=== PATIENT | male | born 1980 | race Caucasian/White ===

== ENCOUNTER 2017-03-24 11:12 | Emergency (ER) | payer OTHER ==
[2017-03-24] MEDS ORDERED: NACL 0.9% 500 ML 500 ML IV ONE (11:49)
[2017-03-24] MEDS ORDERED: TYLENOL PO ONE (12:05)
[2017-03-24 12:16] LABS: Hematocrit 35.2 % (35.5-45.6); Hemoglobin 11.9 gm/dl (11.8-15.2); Mean Corpuscular HGB Conc 34 % (32-34); Mean Corpuscular Hemoglobin 27 pg (28-32); Mean Corpuscular Volume 81 fl (84-94); Red Blood Count 4.35 M/mm3 (3.65-5.03); Red Cell Distribution Width 15.9 % (13.2-15.2); White Blood Count 5.8 K/mm3 (4.5-11.0)
--- NOTE | 2017-03-24 12:20 | Emergency Department Report ---
HPI - General Chief Complaint: Dyspnea/Respdistress Time Seen by Provider: 03/24/17 12:05 - HPI HPI: Room 6 The patient is a 36-year-old male presenting with a chief complaint of shortness of breath. Patient states his symptoms began 5 days ago subjective fever and diaphoresis. Patient also developed diarrhea and a slight headache behind his right ear at that time. The patient states his symptoms persisted until this morning he developed shortness of breath. Patient denies any history of cough but does admit to rhinorrhea. Patient denies nausea/vomiting. Patient denies having sick contacts or any recent antibiotic use Location: [see above] Duration: 5 days Quality: Shortness of breath Severity: Moderate Modifying factors: [see above] Context: [see above] Mode of transportation: [not driving] ED Past Medical Hx - Past Medical History Previous Medical History?: No - Surgical History Past Surgical History?: No - Family History Family history: no significant - Social History Smoking Status: Current Every Day Smoker (1/2 pack per day) Substance Use Type: Alcohol (occasional), Cocaine (none times over one year) - Medications Home Medications: Home Medications Medication Instructions Recorded Confirmed Last Taken Type Ciprofloxacin HCl [Ciprofloxacin 500 mg PO Q12HR #14 tab 03/24/17 Unknown Rx TAB] ED Review of Systems ROS: Stated complaint: SOB/SWEAT AND CHILLS Other details as noted in HPI Comment: All other systems reviewed and negative Constitutional: diaphoresis, fever (subjective) Eyes: denies: eye pain, eye discharge, vision change ENT: other (rhinorrhea) Respiratory: shortness of breath. denies: cough Cardiovascular: denies: chest pain, palpitations Endocrine: no symptoms reported Gastrointestinal: diarrhea. denies: abdominal pain, nausea, vomiting Genitourinary: denies: urgency, dysuria Musculoskeletal: denies: back pain, joint swelling, arthralgia Skin: denies: rash, lesions Neurological: headache Psychiatric: denies: anxiety, depression Hematological/Lymphatic: denies: easy bleeding, easy bruising Physical Exam - Physical Exam Vital Signs: Vital Signs 03/24/17 11:46 Temperature 100.9 F H Pulse Rate 138 H Respiratory 18 Rate Blood Pressure 123/68 O2 Sat by Pulse 100 Oximetry Physical Exam: GENERAL: The patient is well-developed well-nourished male sitting in room not appear to be in acute distress. [] HEENT: Normocephalic. Atraumatic. Extraocular motions are intact. Patient has moist mucous membranes. NECK: Supple. No meningitic signs are noted. Trachea midline CHEST/LUNGS: Clear to auscultation. There is no respiratory distress noted. HEART/CARDIOVASCULAR: Regular. There is tachycardia. There is no gallop rub or murmur. ABDOMEN: Abdomen is soft, nontender. Patient has normal bowel sounds. There is no abdominal distention. SKIN: There is no rash. There is no edema. There is diaphoresis. NEURO: The patient is awake, alert, and oriented. The patient is cooperative. The patient has normal speech and gait MUSCULOSKELETAL: There is no evidence of acute injury. ED Course Vital Signs 03/24/17 11:46 Temperature 100.9 F H Pulse Rate 138 H Respiratory 18 Rate Blood Pressure 123/68 O2 Sat by Pulse 100 Oximetry - Consultations Consultation #1: 03/24/17 15:07 Gastroenterology paged 03/24/17 15:[address] Vora. States the patient is able to tolerate by mouth , has defervesced and is not ill-appearing may be discharged home with close GI follow-up. May start the patient empirically on ciprofloxacin but stressed close follow-up ED Medical Decision Making - Lab Data Result diagrams: 03/24/17 12:06 03/24/17 12:06 Laboratory Tests 03/24/17 03/24/17 03/24/17 12:06 12:06 12:06 WBC 5.8 RBC 4.35 Hgb 11.9 Hct 35.2 L MCV 81 L MCH 27 L MCHC 34 RDW 15.9 H Plt Count 55 L Add Manual Diff Complete Total Counted 100 Seg Neuts % (Manual) 76.0 H Band Neutrophils % 5.0 Lymphocytes % (Manual) 11.0 L Reactive Lymphs % (Man) 4.0 Monocytes % (Manual) 4.0 Eosinophils % (Manual) 0 Basophils % (Manual) 0 Metamyelocytes % 0 Myelocytes % 0 Promyelocytes % 0 Blast Cells % 0 Nucleated RBC % Not Reportable Seg Neutrophils # Man 4.4 Band Neutrophils # 0.3 Lymphocytes # (Manual) 0.6 L Abs React Lymphs (Man) 0.2 Monocytes # (Manual) 0.2 Eosinophils # (Manual) 0.0 Basophils # (Manual) 0.0 Metamyelocytes # 0.0 Myelocytes # 0.0 Promyelocytes # 0.0 Blast Cells # 0.0 WBC Morphology Not Reportable Hypersegmented Neuts Not Reportable Hyposegmented Neuts Not Reportable Hypogranular Neuts Not Reportable Smudge Cells Not Reportable Toxic Granulation Not Reportable Toxic Vacuolation Not Reportable Dohle Bodies Not Reportable Pelger-Huet Anomaly Not Reportable Ace Rods Not Reportable Platelet Estimate Appears decreased Clumped Platelets Not Reportable Plt Clumps, EDTA Not Reportable Large Platelets Not Reportable Giant Platelets Not Reportable Platelet Satelliting Not Reportable Plt Morphology Comment Not Reportable RBC Morphology Not Reportable Dimorphic RBCs Not Reportable Polychromasia Not Reportable Hypochromasia Not Reportable Poikilocytosis Not Reportable Anisocytosis 1+ Microcytosis Not Reportable Macrocytosis Not Reportable Spherocytes Not Reportable Pappenheimer Bodies Not Reportable Sickle Cells Not Reportable Target Cells Few Tear Drop Cells Not Reportable Ovalocytes Not Reportable Helmet Cells Not Reportable Cunningham-Ong Bodies Not Reportable Monroe Rings Not Reportable Akash Cells Not Reportable Bite Cells Not Reportable Crenated Cell Not Reportable Elliptocytes Not Reportable Acanthocytes (Spur) Not Reportable Rouleaux Not Reportable Hemoglobin C Crystals Not Reportable Schistocytes Not Reportable Malaria parasites Not Reportable David Bodies Not Reportable Hem Pathologist Commnt No PT 16.1 H INR 1.23 H VBG pH Sodium 129 L Potassium 4.2 Chloride 93.7 L Carbon Dioxide 23 Anion Gap 17 BUN 14 Creatinine 1.0 Estimated GFR > 60 BUN/Creatinine Ratio 14.00 Glucose 98 Lactic Acid Calcium 7.7 L Total Bilirubin 2.30 H AST 126 H ALT 108 H Alkaline Phosphatase 213 H Total Protein 7.0 Albumin 2.6 L Albumin/Globulin Ratio 0.6 03/24/17 03/24/17 12:06 12:06 WBC RBC Hgb Hct MCV MCH MCHC RDW Plt Count Add Manual Diff Total Counted Seg Neuts % (Manual) Band Neutrophils % Lymphocytes % (Manual) Reactive Lymphs % (Man) Monocytes % (Manual) Eosinophils % (Manual) Basophils % (Manual) Metamyelocytes % Myelocytes % Promyelocytes % Blast Cells % Nucleated RBC % Seg Neutrophils # Man Band Neutrophils # Lymphocytes # (Manual) Abs React Lymphs (Man) Monocytes # (Manual) Eosinophils # (Manual) Basophils # (Manual) Metamyelocytes # Myelocytes # Promyelocytes # Blast Cells # WBC Morphology Hypersegmented Neuts Hyposegmented Neuts Hypogranular Neuts Smudge Cells Toxic Granulation Toxic Vacuolation Dohle Bodies Pelger-Huet Anomaly Ace Rods Platelet Estimate Clumped Platelets Plt Clumps, EDTA Large Platelets Giant Platelets Platelet Satelliting Plt Morphology Comment RBC Morphology Dimorphic RBCs Polychromasia Hypochromasia Poikilocytosis Anisocytosis Microcytosis Macrocytosis Spherocytes Pappenheimer Bodies Sickle Cells Target Cells Tear Drop Cells Ovalocytes Helmet Cells Cunningham-Ong Bodies Monroe Rings [place] Cells Bite Cells Crenated Cell Elliptocytes Acanthocytes (Spur) Rouleaux Hemoglobin C Crystals Schistocytes Malaria parasites David Bodies Hem Pathologist Commnt PT INR VBG pH 7.431 H Sodium Potassium Chloride Carbon Dioxide Anion Gap BUN Creatinine Estimated GFR BUN/Creatinine Ratio Glucose Lactic Acid 1.50 Calcium Total Bilirubin AST ALT Alkaline Phosphatase Total Protein Albumin Albumin/Globulin Ratio Influenza negative - EKG Data -: EKG Interpreted by Me EKG shows normal: sinus rhythm Rate: tachycardia (119 bpm) - EKG Data When compared to previous EKG there are: previous EKG unavailable Interpretation: other (no ischemic changes seen) - Radiology Data Radiology results: report reviewed (right upper quadrant ultrasound), image reviewed (chest x-ray, right upper quadrant ultrasound) interpreted by me: Chest x-ray no focal infiltrate, no pneumothorax Right upper quadrant ultrasound (read by radiologist)-no focal liver lesions are seen. There is no intra-or extrahepatic biliary dilatation. There is a small amount of gallbladder sludge. There is no cholelithiasis seen. There is no gallbladder wall thickening or pericholecystic fluid. Visualized pancreas is unremarkable. There is no right hydronephrosis - Differential Diagnosis pneumonia, UTI, enteritis, influenza Critical care attestation.: If time is entered above; I have spent that time in minutes in the direct care of this critically ill patient, excluding procedure time. ED Disposition Clinical Impression: Fever, Diarrhea, Thrombocytopenia, Elevated LFTs Disposition: DC- TO HOME OR SELFCARE Is pt being admited?: No Does the pt Need Aspirin: No Condition: Stable Instructions: Thrombocytopenia (ED), Viral Hepatitis B (ED), Viral Hepatitis C (ED), Viral Hepatitis A (ED) Additional Instructions: Return to the emergency department immediately should you develop worsening symptoms, fever, inability to tolerate food or liquid or any other concerns. Prescriptions: Ciprofloxacin HCl [Ciprofloxacin TAB] 500 mg PO Q12HR #14 tab Referrals: PAMELA VORA MD [Staff Physician] - [facility] (Dr. Vora is a supervising editor trailer. It is very important that you follow-up with him promptly for further evaluation ) Time of Disposition: 15:22
[2017-03-24 12:27] LABS: Platelet Count 55 K/mm3 (140-440)
[2017-03-24 12:30] LABS: INR 1.23 (0.87-1.13)
[2017-03-24 12:34] LABS: Alanine Aminotransferase 108 units/L (7-56); Albumin 2.6 g/dL (3.9-5); Albumin/Globulin Ratio 0.6 %; Alkaline Phosphatase 213 units/L (35-129); Anion Gap 17 mmol/L; Blood Urea Nitrogen 14 mg/dL (9-20); Calcium 7.7 mg/dL (8.4-10.2); Carbon Dioxide 23 mmol/L (22-30); Chloride 93.7 mmol/L (98-107); Glucose 98 mg/dL (75-100); Potassium 4.2 mmol/L (3.6-5.0); Sodium 129 mmol/L (137-145)
--- NOTE | 2017-03-24 13:16 | XRay Report ---
ROUTINE CHEST, TWO VIEWS: HISTORY: Short of breath, fever. The trachea, heart, mediastinal contour, lung saunders and bony thorax are unremarkable. IMPRESSION: Unremarkable chest x-ray.
[2017-03-24 13:24] LABS: Basophils % (Manual) 0 % (0.0-1.8); Blastocytes % (Manual) 0 %; Eosinophils % (Manual) 0 % (0.0-4.3)
[2017-03-24 13:25] LABS: Anisocytosis 1+; Diff Status Complete; Platelet Estimate Appears Decreased; Target Cells Few
--- NOTE | 2017-03-24 14:59 | Ultrasound Report ---
FINAL REPORT EXAM: US ABDOMEN LIMITED HISTORY: diarrhea, elevated LFTs TECHNIQUE: Sonography of the abdomen performed. PRIORS: None. FINDINGS: No focal liver lesions are seen. There is no intra- or extrahepatic biliary dilatation. There is a small amount of gallbladder sludge. There is no cholelithiasis seen. There is no gallbladder wall thickening or pericholecystic fluid. The visualized pancreas is unremarkable. There is no right hydronephrosis. IMPRESSION: Small amount of dependent gallbladder sludge. No cholelithiasis or other significant finding seen.
[2017-03-24 15:14] VITALS: BP 109/73
== END 2017-03-24 15:48 | disposition home or self-care (01) ==
LOC: ED 11:12
DX: R50.9 Fever, unspecified (principal); R19.7 Diarrhea, unspecified; D69.6 Thrombocytopenia, unspecified; R94.5 Abnormal results of liver function studies; F14.10 Cocaine abuse, uncomplicated; F17.200 Nicotine dependence, unspecified, uncomplicated
CPT/HCPCS: 36415; 71020; 76705; 80053; 82140; 82805; 85007; 85025; 85610; 87040; 87086; 87400; 93005; 93010; 96360; 96361; 99285; J7040

== ENCOUNTER 2017-06-21 09:11 | Emergency (ER) | payer OTHER ==
--- NOTE | 2017-06-21 10:30 | Emergency Department Report ---
Minor Respiratory - HPI Chief Complaint: Sore Throat Stated Complaint: FLU LIKE SYMPTOMS Time Seen by Provider: 06/21/17 10:25 ED Review of Systems ROS: Stated complaint: FLU LIKE SYMPTOMS Other details as noted in HPI ED Past Medical Hx - Past Medical History Previous Medical History?: No - Surgical History Past Surgical History?: No - Social History Smoking Status: Former Smoker Substance Use Type: Alcohol, Cocaine, Marijuana - Medications Home Medications: Home Medications Medication Instructions Recorded Confirmed Last Taken Type Ciprofloxacin HCl [Ciprofloxacin 500 mg PO Q12HR #14 tab 03/24/17 Unknown Rx TAB] Minor Respiratory Exam - Exam General: Vital signs noted. No distress. Alert and acting appropriately. Neurologic: Alert and oriented, no deficits. Musculoskeletal: Unremarkable. ED Course Vital Signs 06/21/17 10:11 Temperature 98.0 F Pulse Rate 131 H Respiratory 20 Rate Blood Pressure 148/84 O2 Sat by Pulse 98 Oximetry Critical care attestation.: If time is entered above; I have spent that time in minutes in the direct care of this critically ill patient, excluding procedure time. ED Disposition Condition: Stable
[2017-06-21] MEDS ORDERED: NACL 0.9% 1000 ML 1,000 ML IV ONE (10:45)
[2017-06-21 11:14] LABS: Hematocrit 41.4 % (35.5-45.6); Hemoglobin 14.1 gm/dl (11.8-15.2); Mean Corpuscular HGB Conc 34 % (32-34); Mean Corpuscular Hemoglobin 30 pg (28-32); Mean Corpuscular Volume 87 fl (84-94); Red Blood Count 4.77 M/mm3 (3.65-5.03)
[2017-06-21 11:18] LABS: BUN/Creatinine Ratio 13; Blood Urea Nitrogen 17 mg/dL (9-20); Calcium 7.9 mg/dL (8.4-10.2); Hemolysis Index 4; Platelet Count 43 K/mm3 (140-440)
[2017-06-21 11:21] LABS: Albumin 2.7 g/dL (3.9-5); Bilirubin,Direct 0.9 mg/dL (0-0.2)
--- NOTE | 2017-06-21 11:45 | XRay Report ---
ROUTINE CHEST, TWO VIEWS: HISTORY: Cough, upper respiratory infection. The trachea, heart, mediastinal contour, lung saunders and bony thorax are unremarkable. IMPRESSION: Unremarkable chest x-ray.
[2017-06-21 11:50] LABS: Anisocytosis 1+; Band Neutrophils # (Manual) 0.1 K/mm3; Basophils % (Manual) 0 % (0.0-1.8); Eosinophils % (Manual) 0 % (0.0-4.3); Large Platelets 1+; Ovalocytes Few; Platelet Estimate Appears Decreased; Total Cells Counted 100
--- NOTE | 2017-06-21 12:15 | Emergency Department Report ---
- General Chief Complaint: Sore Throat Stated Complaint: FLU LIKE SYMPTOMS Time Seen by Provider: 06/21/17 10:25 Source: patient, family, old records reviewed Mode of arrival: Ambulatory Limitations: No Limitations - History of Present Illness MD Complaint: sore throat, other (whitley and fatigue) -: Gradual, week(s) (but inc in days worse than ever) Severity: moderate Consistency: intermittent Improves With: nothing Worsens With: nothing Context: other (homosexual male concerned for hiv; tested in december) Associated Symptoms: myalgias, headache, weight loss, other (fatigue, flu like s /s; knots in back of head). denies: fever, chills, diaphoresis, rhinorrhea, nasal congestion, sore throat, stiff neck, cough, chest pain, shortness of breath, abdominal pain, nausea, vomiting, diarrhea, dysuria, rash, confusion, right sweats, epistaxis, hoarseness, ear pain Treatments Prior to Arrival: Acetaminophen, Aspirin - Related Data Previous Rx's Medication Instructions Recorded Last Taken Type Sulfamethoxazole/Trimethoprim 2 each PO Q8H #21 day 06/21/17 Unknown Rx [Bactrim DS TAB] Allergies Allergy/AdvReac Type Severity Reaction Status Date / Time No Known Allergies Allergy Unverified 03/24/17 11:46 ED Review of Systems ROS: Stated complaint: FLU LIKE SYMPTOMS Other details as noted in HPI Comment: All other systems reviewed and negative Constitutional: fever, malaise, weakness ENT: throat pain Endocrine: flushing Neurological: weakness Psychiatric: anxiety ED Past Medical Hx - Past Medical History Previous Medical History?: No - Surgical History Past Surgical History?: No - Family History Family history: no significant - Social History Smoking Status: Former Smoker Substance Use Type: Alcohol, Cocaine, Marijuana - Medications Home Medications: Home Medications Medication Instructions Recorded Confirmed Last Taken Type Sulfamethoxazole/Trimethoprim 2 each PO Q8H #21 day 06/21/17 Unknown Rx [Bactrim DS TAB] ED Physical Exam - General Limitations: No Limitations General appearance: alert, in no apparent distress, anxious - Head Head exam: Present: atraumatic, normocephalic - Eye Eye exam: Present: normal appearance, PERRL, EOMI. Absent: conjunctival injection - ENT ENT exam: Present: mucous membranes moist, TM's normal bilaterally - Neck Neck exam: Present: normal inspection, full ROM, lymphadenopathy (sub occipal ) - Respiratory Respiratory exam: Present: normal lung sounds bilaterally, respiratory distress - Cardiovascular Cardiovascular Exam: Present: regular rate, normal rhythm, tachycardia (on admit ; p fluids dec to 100), normal heart sounds - GI/Abdominal GI/Abdominal exam: Present: soft - Rectal Rectal exam: Present: deferred - exam: Present: normal inspection External exam: Present: normal external exam - Extremities Exam Extremities exam: Present: normal inspection, full ROM - Back Exam Back exam: Present: normal inspection, full ROM. Absent: tenderness, CVA tenderness (R), CVA tenderness (L) - Neurological Exam Neurological exam: Present: alert, oriented X3, CN II-XII intact, normal gait - Psychiatric Psychiatric exam: Present: normal affect, normal mood - Skin Skin exam: Present: warm, dry, intact, normal color. Absent: rash, cyanosis, diaphoretic, erythema, urticaria, vesicles, other (no hand lesions or skin lesions noted ) ED Course Vital Signs 06/21/17 06/21/17 10:11 16:16 Temperature 98.0 F 99.4 F Pulse Rate 131 H 126 H Respiratory 20 18 Rate Blood Pressure 148/84 Blood Pressure 127/83 [Right] O2 Sat by Pulse 98 99 Oximetry - Reevaluation(s) Reevaluation #1: TO ER FOR SECOND TIME W [place] [facility] CO HOMOSEXUAL MALE WHO WAS LAST TESTED FOR HIV IN DECEMBER; THEN NEG HE IS CONCERNED FOR HIV CO WHITLEY, DEC ENERGY, FEELING DEHDYRATION, DIARRHEA, DIZZY 2 SEX PARTNERS IN 6 M; NO HIV KNOWN HX TRANSAMINITIS HX ETOH/COCAIN/THC STOPPED CIG IN MAR MOM /DAD A/W HTN ONLY NO CURRENT MEDS LABS NOTED DISCUSSED WITH DR JAMES. will call Dr Everett for consult. Reevaluation #2: 06/21/17 17:12 Discussed case at length with pt his best friend was called and is here at the beside with him Dr. Everett consulted- she advised bactrim ds prophylactic and follow up. labs ordered per her recommendation call back no verified with pt for labs. will dc home w follow up at [facility] with friend taking po hr 100, rr 20, sat 100 per provider appreciative of care ED Medical Decision Making - Lab Data Result diagrams: 06/21/17 10:48 06/21/17 10:48 - Radiology Data Radiology results: report reviewed, image reviewed - Medical Decision Making see note flu a/b neg strep neg xray neg discussed w Dr James discussed w Dr Everett Pt educated Support at bedside for dc poc provided - Differential Diagnosis ro hiv related infection Critical care attestation.: If time is entered above; I have spent that time in minutes in the direct care of this critically ill patient, excluding procedure time. ED Disposition Clinical Impression: HIV (human immunodeficiency virus infection), Dysuria, Polysubstance abuse Disposition: DC-01 TO HOME OR SELFCARE Is pt being admited?: No Does the pt Need Aspirin: No Condition: Stable Instructions: Human Immunodeficiency Virus Transmission (ED), Human Immunodeficiency Virus Infection (ED) Additional Instructions: follow up with infectious disease within 1 week med as ordered today hydrate well motrin for pain or fever decrease use of drugs and alcohol rest good nutrition have your MD fax consent to us to get your medical records from today. Prescriptions: Sulfamethoxazole/Trimethoprim [Bactrim DS TAB] 2 each PO Q8H #21 day Referrals: PRIMARY CARE, [Primary Care Provider] - 3-5 Days [facility] [Outside] - 3-5 Days Time of Disposition: 17:09
[2017-06-21 13:11] LABS: INR 1.34 (0.87-1.13)
[2017-06-21 13:12] LABS: Partial Thromboplastin Time 44.5 Sec. (24.2-36.6)
[2017-06-21 14:07] LABS: Bacteria,Urine 1+ /HPF (Negative); Bilirubin,Urine NEG (Negative); Blood,Urine MOD (Negative); Color,Urine Amber (Yellow); Mucus,Urine FEW /HPF; Nitrite,Urine NEG (Negative)
[2017-06-21 14:31] LABS: Hepatitis A Antibody IgM Non-Reactive (NonReactive); Hepatitis B Core IgM Non-Reactive (NonReactive); Hepatitis B Surface Antigen Non-Reactive (Negative); Hepatitis C Virus Antibody Non-Reactive (NonReactive)
[2017-06-21 16:17] VITALS: BP 127/83
[2017-06-21] MEDS ORDERED: ZITHROMAX PO ONE (16:39)
[2017-06-21] MEDS ORDERED: XYLOCAINE 1% MPF 5 mL INFILTRATI ONE (16:39)
[2017-06-21] MEDS ORDERED: ROCEPHIN IM ONE (16:39)
[2017-06-21] MEDS ORDERED: BACTRIM DS PO ONE (16:44)
[2017-06-21] MEDS ORDERED: MOTRIN PO ONE (16:45)
[2017-06-25 21:18] LABS: HIV-1 RNA QN PCR 5.1 Log cps/mL (<1.30)
[2017-06-27 20:41] LABS: CD4/CD8 Ratio 0.08 (0.86-5.00)
== END 2017-06-21 17:47 | disposition home or self-care (01) ==
LOC: ED 09:11
DX: R30.0 Dysuria (principal); F19.10 Other psychoactive substance abuse, uncomplicated; Z21 Asymptomatic human immunodeficiency virus [HIV] infection status; F14.10 Cocaine abuse, uncomplicated; F12.10 Cannabis abuse, uncomplicated; Z87.891 Personal history of nicotine dependence
CPT/HCPCS: 36415; 71020; 80048; 80074; 81001; 82024; 85007; 85025; 85610; 85730; 86689; 87086; 87116; 87400; 87430; 87536; 87591; 87806; 96360; 96372; 99284; J0696; J7030

== ENCOUNTER 2017-06-27 20:00 | Emergency (ER) | payer OTHER ==
[~2017-06-27 20:00] MED LIST: ADRENALIN ONE
--- NOTE | 2017-06-27 21:50 | Emergency Department Report ---
ED CPR HPI - General Chief Complaint: Cardiac Arrest/CPR Stated Complaint: CARDIAC ARREST Time Seen by Provider: 06/27/17 21:45 Source: patient, EMS Mode of arrival: Stretcher Limitations: Other - History of Present Illness Initial Comments: 36 YO MALE FOUND UNRESPONSIVE AT HOME BY FAMILY MEMBERS. MR NEGRETE WAS SEEING FOOD ADVISER FOR HIS DIABETES. PT HAD MEDICAL ISSUES THAT HE DID NOT DISCUSS WITH HIS FAMILY. HE HAD 84 PILLS OF BACTRIM WHEN HE WAS BROUGHT IN WHICH GIVES ME A STRONG SUSPICION THAT HE HAD HIV. IN THE FIELD, HE WAS GIVEN I AMP D5 FOR GLUCOSE OF 46. THIS GLUCOSE BROUGHT THE GLUCOSE U P TO 67. HE THEN RECEIVED 2 AMP OF GLUCOSE FROM US. HIS EYES WERE JAUNDICE. HE RECEIVED ACLS PROTOCOL VIA EMS WITH 2 ROUNDS OF EPI AND 4 EPI FROM US WITH BICARD AND 2 AMP OF D50. HE REMAINED ASYSTOLE AND NEVER REGAINED SPONTANEOUS CARDIAC ACTIVITY, RESPIRATIONS OR MOVEMENT IN HIS EXTREMITIES. AN ULTRA SOUND OF HIS HEART WAS DONE AFTER MORE THAN 30 MORE MINUTES OF ACLS PROTOCAL AND IT SHOWED NO CARDIAC ACTIVITY. HIS PUPILS WERE FIXED AN DILATED THUS OUR EFFORTS WERE TERMINATED MD Complaint: found unresponsive, stopped breathing Place: home Bystander CPR Performed: No AED Applied by Bystander/Supervisor Trust Accounts: Yes Shock Advised: No Initial Findings in the Field: unresponsive Associated Injuries: No Associated Symptoms: other (LOW GLUCOSE) Treatments Prior to Arrival: intubation, epinephrine mgs # (2), glucose (25MG IV ) - Related Data Previous Rx's Medication Instructions Recorded Last Taken Type Sulfamethoxazole/Trimethoprim 2 each PO Q8H #21 day 06/21/17 Unknown Rx [Bactrim DS TAB] Allergies Allergy/AdvReac Type Severity Reaction Status Date / Time No Known Allergies Allergy Unverified 03/24/17 11:46 ED Review of Systems ROS: Stated complaint: CARDIAC ARREST Other details as noted in HPI Comment: HISTORY FROM FAMILY Endocrine: unexplained weight loss Neurological: weakness ED Past Medical Hx - Past Medical History Previous Medical History?: Yes Hx HIV: Yes (LAST VISIT LABS) - Social History Smoking Status: Former Smoker Substance Use Type: Alcohol, Cocaine, Marijuana - Medications Home Medications: Home Medications Medication Instructions Recorded Confirmed Last Taken Type Sulfamethoxazole/Trimethoprim 2 each PO Q8H #21 day 06/21/17 Unknown Rx [Bactrim DS TAB] ED Physical Exam - General Limitations: Altered Mental Status, Other - Head Head exam: Present: atraumatic, normocephalic - Eye Eye exam: Present: scleral icterus (BILATERAL), other (PUPILS FIXED AN DDILATED) - ENT ENT exam: Present: mucous membranes dry - Neck Neck exam: Present: normal inspection, full ROM - Respiratory Respiratory exam: Present: normal lung sounds bilaterally. Absent: wheezes, rales, accessory muscle use - Cardiovascular Cardiovascular Exam: Present: other (ASYSTOLE) - GI/Abdominal GI/Abdominal exam: Present: soft. Absent: distended, guarding, rebound - Rectal Rectal exam: Present: deferred - Extremities Exam Extremities exam: Present: normal inspection. Absent: normal capillary refill ( COLD EXTREMITIES) - Back Exam Back exam: Present: full ROM - Neurological Exam Neurological exam: Present: CN II-XII intact, other (UNRESPONSIVE) - Skin Skin exam: Present: warm, dry, intact, normal color. Absent: rash ED Course - Reevaluation(s) Reevaluation #1: 06/28/17 02:33 BASED ON THE BLOOD WORK FROM THE LAST VISIT , MR NEGRETE WAS HIV POSITIVE AND HAD AIDS WITH CD4 COUNT OF 6. HE ALSO TESTED POSITIVE FOR GONORRHEA Critical care attestation.: If time is entered above; I have spent that time in minutes in the direct care of this critically ill patient, excluding procedure time. 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
== END 2017-06-28 00:19 ==
LOC: ED 20:00
DX: I46.9 Cardiac arrest, cause unspecified (principal); B20 Human immunodeficiency virus [HIV] disease; F14.10 Cocaine abuse, uncomplicated; F12.10 Cannabis abuse, uncomplicated; Z87.891 Personal history of nicotine dependence
CPT/HCPCS: 99285; J0171